=== PATIENT | male | born 1975 | race African-American/Black ===

== ENCOUNTER 2016-08-22 02:30 | Inpatient (IN) | payer MEDICAID, OTHER ==
[~2016-08-22] VITALS: Ht 170.2 cm; Wt 88.5 kg
[~2016-08-22 02:30] MED LIST: ALBU8HFA IH; ALPR0.5T8 PO; DULO60CA44 PO; HYDR-305 PO; OLAN10TA3 PO
[2016-08-22] MEDS ORDERED: ZOLPIDEM TARTRATE 10 MG TABLET PO PRN (04:45)
[2016-08-22] MEDS: LORazepam 1 MG TABLET PO PRN ×2 (05:47→16:48)
[2016-08-22] MEDS ORDERED: PNEUMOCOCCAL VACCINE POLYVALENT 0.5 ML VIAL [PPSV23] IM ONE (06:15)
[2016-08-22 06:16] VITALS: BP 120/67
[2016-08-22 08:11] VITALS: BP 90/44
[2016-08-22] MEDS ORDERED: LOPERAMIDE HCL 2 MG CAPSULE PO PRN (08:30)
[2016-08-22] MEDS ORDERED: IBUPROFEN 600 MG TABLET PO PRN (08:30)
[2016-08-22] MEDS ORDERED: BACITRACIN 28.4 GM OINTMENT TP PRN (08:30)
[2016-08-22] MEDS ORDERED: PETROLATUM,WHITE 71 GM JELLY TP PRN (08:30)
[2016-08-22] MEDS ORDERED: ACETAMINOPHEN 325 MG TABLET PO PRN (08:30)
[2016-08-22] MEDS ORDERED: ONDANSETRON HCL 4 MG TABLET PO PRN (08:30)
[2016-08-22] MEDS ORDERED: CloNIDine HCL 0.1 MG TABLET PO PRN (08:30)
[2016-08-22] MEDS ORDERED: MAGNESIUM HYDROXIDE SUSPENSION 30 ML UDCUP PO PRN (08:30)
[2016-08-22] MEDS ORDERED: MAG HYDROX/AL HYDROX/SIMETH ES 30 ML SUSPENSION UDCUP PO PRN (08:30)
[2016-08-22] MEDS ORDERED: BENZOCAINE/MENTHOL LOZENGE MM PRN (08:30)
[2016-08-22] MEDS ORDERED: TraMADol HCL 50 MG TABLET PO PRN (08:45)
[2016-08-22] MEDS ORDERED: OLAN10TA3 PO (08:50)
[2016-08-22] MEDS ORDERED: LISI-660 PO (08:50)
[2016-08-22] MEDS ORDERED: CARV3 PO (08:50)
[2016-08-22] MEDS ORDERED: DULO60CA44 PO (08:50)
[2016-08-22] MEDS ORDERED: HYDR-309 PO (08:52)
[2016-08-22] MEDS ORDERED: ADV100 IH (08:54)
[2016-08-22] MEDS ORDERED: ALBU6.7H IH (08:56)
[2016-08-22 09:10] VITALS: BP 110/61
[2016-08-22] MEDS: NICOTINE 21 MG/24 HOUR PATCH TD SCH (09:17)
[2016-08-22] MEDS: DULoxetine HCL 60 MG CAPSULE PO SCH (12:42)
[2016-08-22] MEDS: ALBUTEROL SULFATE HFA 90 MCG/PUFF 8 GM INHALER IH PRN (16:00)
[2016-08-22 16:13] VITALS: BP 113/69
[2016-08-22] MEDS: QUEtiapine FUMARATE 100 MG TABLET PO PRN (17:08)
[2016-08-22] MEDS ORDERED: HYDROCODONE/ACETAMINOPHEN 5-325 MG TABLET PO SCH (17:30)
[2016-08-22] MEDS: HYDROCODONE/ACETAMINOPHEN 5-325 MG TABLET PO SCH (19:33)
[2016-08-22] MEDS: OLANZapine 10 MG TABLET PO SCH (20:10)
[2016-08-23] MEDS: ALBUTEROL SULFATE HFA 90 MCG/PUFF 8 GM INHALER IH PRN ×2 (01:19→17:45)
[2016-08-23 05:44] VITALS: BP 133/74
[2016-08-23 08:00] VITALS: BP 111/63
[2016-08-23] MEDS: DULoxetine HCL 60 MG CAPSULE PO SCH (09:32)
[2016-08-23] MEDS: NICOTINE 21 MG/24 HOUR PATCH TD SCH (09:32)
[2016-08-23] MEDS: HYDROCODONE/ACETAMINOPHEN 5-325 MG TABLET PO SCH (09:32)
[2016-08-23] MEDS: LORazepam 1 MG TABLET PO PRN ×2 (11:52→17:26)
[2016-08-23] MEDS: QUEtiapine FUMARATE 100 MG TABLET PO PRN ×2 (11:52→17:26)
[2016-08-23 16:00] VITALS: BP 111/77
[2016-08-23] MEDS ORDERED: IBUPROFEN 600 MG TABLET PO PRN (18:15)
[2016-08-23] MEDS: OLANZapine 10 MG TABLET PO SCH (20:30)
[2016-08-24 07:03] VITALS: BP_SYST 119; BP_SYST 142; BP_DIAS 60; BP_DIAS 78
[2016-08-24 08:32] VITALS: BP 125/74
[2016-08-24] MEDS: NICOTINE 21 MG/24 HOUR PATCH TD SCH (09:11)
[2016-08-24] MEDS: HYDROCODONE/ACETAMINOPHEN 5-325 MG TABLET PO SCH (09:11)
[2016-08-24] MEDS: DULoxetine HCL 60 MG CAPSULE PO SCH (09:11)
[2016-08-24] MEDS: QUEtiapine FUMARATE 100 MG TABLET PO PRN (10:24)
[2016-08-24] MEDS: LORazepam 1 MG TABLET PO PRN (10:24)
[2016-08-24] MEDS: ALBUTEROL SULFATE HFA 90 MCG/PUFF 8 GM INHALER IH PRN (14:39)
== END 2016-08-24 15:00 | disposition home or self-care (01) | DRG 750 ==
LOC: EDSTATUS 04:59 → B2S 05:14 → B3A 18:35
DX: F25.1 Schizoaffective disorder, depressive type (principal); R45.851 Suicidal ideations; M41.9 Scoliosis, unspecified; J45.909 Unspecified asthma, uncomplicated; M19.90 Unspecified osteoarthritis, unspecified site; G89.29 Other chronic pain; F41.9 Anxiety disorder, unspecified; G47.00 Insomnia, unspecified; K59.00 Constipation, unspecified; Z59.0 Homelessness; Z91.5 Personal history of self-harm; Z28.21 Immunization not carried out because of patient refusal; Z79.899 Other long term (current) drug therapy
CPT/HCPCS: J3535

== ENCOUNTER 2017-07-12 21:18 | Emergency (ER) | payer MEDICAID, OTHER ==
[~2017-07-12] VITALS: Ht 170.2 cm; Wt 77.0 kg
[~2017-07-12 21:18] MED LIST changes: -ALBU8HFA IH; -ALPR0.5T8 PO; -HYDR-305 PO
[2017-07-12] MEDS ORDERED: ALBU8HFA IH (21:20)
[2017-07-12] MEDS ORDERED: 0.9% SODIUM CHLORIDE 5 ML NEB SOLUTION NEB ONE (21:29)
[2017-07-12] MEDS ORDERED: ALBUTEROL SULFATE 5 MG/ML 20 ML NEB SOLN [BULK] NEB ONE (21:30)
[2017-07-12] MEDS ORDERED: DiphenhydrAMINE HCL 25 MG CAPSULE PO ONE (22:00)
[2017-07-12] MEDS ORDERED: ALBUTEROL SULFATE HFA 90 MCG/PUFF 8 GM INHALER IH ONE (22:30)
[2017-07-12 22:40] VITALS: BP 116/69
== END 2017-07-12 22:54 | disposition home or self-care (01) ==
LOC: EMS 21:19
DX: J45.909 Unspecified asthma, uncomplicated (principal)
CPT/HCPCS: 94640; 99284; J3535

== ENCOUNTER 2018-01-10 16:34 | Emergency (ER) | payer OTHER ==
[~2018-01-10] VITALS: Ht 170.2 cm; Wt 83.0 kg
[~2018-01-10 16:34] MED LIST changes: +ALBU8HFA IH
[2018-01-10] MEDS ORDERED: LISI-661 PO (16:38)
[2018-01-10] MEDS ORDERED: HYDR25TA PO (16:38)
[2018-01-10] MEDS ORDERED: FURO40 PO (16:38)
[2018-01-10] MEDS ORDERED: ISOS30TA6 PO (16:38)
[2018-01-10] MEDS ORDERED: ASPIRIN 81 MG CHEWABLE TABLET PO ONE (16:45)
[2018-01-10] MEDS ORDERED: FUROSEMIDE 40 MG/4 ML VIAL IVP ONE (17:00)
[2018-01-10 17:10] LABS: BASOPHILS % (AUTO) 0.6 % (0.0-2.0); EOSINOPHILS % (AUTO) 5.8 % (1.0-6.0); HEMATOCRIT 38.2 % (41-53); LYMPHOCYTES # (AUTO) 1.3 K/uL (1.0-4.8); LYMPHOCYTES % (AUTO) 20.3 % (22.0-44.0); MEAN CORPUSCULAR HEMOGLOBIN 30.7 pg (26.0-34.0); MEAN CORPUSCULAR HGB CONC 33.9 G/dL (31.0-37.0); MEAN CORPUSCULAR VOLUME 91 fL (80-100); MONOCYTES # (AUTO) 0.4 K/uL (0.1-1.0); MONOCYTES % (AUTO) 5.8 % (2.0-9.0); NEUTROPHILS # (AUTO) 4.5 K/uL (1.8-7.7); NEUTROPHILS % (AUTO) 67.5 % (40.0-70.0); PLATELET COUNT (AUTO) 226 K/uL (150-450); RED BLOOD CELL COUNT(AUTO) 4.22 MIL/uL (4.50-5.90); RED CELL DISTRIBUTION WIDTH 14.2 % (11.5-14.5)
[2018-01-10 17:23] LABS: ANION GAP 10 mmol/L (8-16); CALCIUM, TOTAL 9.1 mg/dL (8.8-10.5); CARBON DIOXIDE 26 mmol/L (22-29); CHLORIDE 108 mmol/L (98-107); CREATININE 1.05 mg/dL (0.60-1.30); GLOMERULAR FILTR. RATE CALC > 60 mL/min (>60); GLUCOSE,RANDOM 144 mg/dL (70-110); POTASSIUM 3.6 mmol/L (3.5-5.1); SODIUM SERUM 144 mmol/L (136-145); UREA NITROGEN, BLOOD 8 mg/dL (7-18)
[2018-01-10 17:33] LABS: B-TYPE NATRIURETIC PEPTIDE 58 pg/mL (0-100)
[2018-01-10 17:49] LABS: ALANINE AMINOTRANSFERASE 43 U/L (12-78); ALBUMIN 3.3 g/dL (3.4-5.0); ALKALINE PHOSPHATASE 85 U/L (46-116); ASPARTATE AMINOTRANSFERASE 26 U/L (15-37); BILIRUBIN,TOTAL 0.5 mg/dL (0.1-1.0); CREATINE KINASE, TOTAL ONLY 93 U/L (39-308); TOTAL PROTEIN, SERUM 6.7 g/dL (6.4-8.2)
[2018-01-10 17:54] LABS: APPEARANCE,URINE CLEAR (CLEAR); BILIRUBIN,URINE NEGATIVE (NEGATIVE); GLUCOSE, URINE (UA) NEGATIVE (NEGATIVE); KETONES,URINE NEGATIVE (NEGATIVE); LEUKOCYTE ESTERASE ,URINE NEGATIVE (NEGATIVE); NITRATE,URINE NEGATIVE (NEGATIVE); OCCULT BLOOD,URINE NEGATIVE (NEGATIVE); PH,URINE 6.5 (5.0-8.0); PROTEIN,URINE NEGATIVE (NEGATIVE); UROBILINOGEN,URINE 0.2 mg/dL (<=1.0)
[2018-01-10] MEDS ORDERED: OxyCODONE HCL/ACETAMINOPHEN 5-325 MG TABLET PO ONE (19:15)
[2018-01-10 20:44] VITALS: BP 127/89
== END 2018-01-10 20:57 | disposition home or self-care (01) ==
LOC: EMS 16:34
DX: I50.9 Heart failure, unspecified (principal); G89.29 Other chronic pain; F41.9 Anxiety disorder, unspecified; J45.909 Unspecified asthma, uncomplicated; F32.9 Major depressive disorder, single episode, unspecified; F20.9 Schizophrenia, unspecified; Z88.0 Allergy status to penicillin; Z88.7 Allergy status to serum and vaccine; Z79.899 Other long term (current) drug therapy
CPT/HCPCS: 36415; 71045; 80053; 81003; 82550; 83880; 84484; 85025; 93005; 96374; 99285; J1940